=== PATIENT | male | born 1975 | race Hispanic/Latino ===

== ENCOUNTER 2018-11-21 14:35 | Emergency (ER) | payer OTHER ==
[~2018-11-21] VITALS: Ht 172.7 cm; Wt 100.2 kg
[2018-11-21] MEDS ORDERED: PREDNISONE20 MG PO (15:28)
[2018-11-21] MEDS ORDERED: PROAIR HFA INH8.5 GM INH (15:28)
[2018-11-21] MEDS ORDERED: TYLENOL WITH C1 EACH PO (15:28)
[2018-11-21] MEDS ORDERED: PREDNISONE 20 MG TAB PO NR (15:30)
[2018-11-21] MEDS ORDERED: ALBUTEROL/IPRATROPIUM 3 ML NEB NEB ONE (15:30)
--- NOTE | 2018-11-21 16:58 | Diagnostic Imaging Report ---
EXAM: CHEST 2 VIEWS, PA and lateral DATE: 11/21/2018 Time stamp on exam: 4:08 PM INDICATION: Cough COMPARISON: None FINDINGS: LINES/TUBES: None LUNGS: No consolidations or edema. PLEURA: No effusions or pneumothorax. HEART AND MEDIASTINUM: Normal size and contour. BONES AND SOFT TISSUES: No acute findings. IMPRESSION: No acute thoracic abnormality. Signed by: Dr. Marty Chen DO on 11/21/2018 4:54 PM
[2018-11-21 18:01] VITALS: BP 118/78
== END 2018-11-21 18:10 | disposition home or self-care (01) ==
LOC: ER 14:35
DX: J20.9 Acute bronchitis, unspecified (principal); R09.81 Nasal congestion
CPT/HCPCS: 71046; 99284